=== PATIENT | male | born 1990 | race Caucasian/White ===

== ENCOUNTER 2019-06-06 18:47 | Emergency (ER) | payer OTHER ==
[~2019-06-06] VITALS: Ht 167.6 cm; Wt 91.6 kg
[2019-06-06 18:57] VITALS: Ht 167.6 cm; Wt 91.6 kg
[2019-06-06 21:35] VITALS: BP 123/80
== END 2019-06-06 21:35 | disposition home or self-care (01) ==
LOC: ED 18:47
DX: J06.9 Acute upper respiratory infection, unspecified (principal); J45.909 Unspecified asthma, uncomplicated